=== PATIENT | male | born 1990 | race Caucasian/White ===

== ENCOUNTER 2016-09-04 20:31 | Emergency (ER) | payer MEDICAID, OTHER ==
[~2016-09-04] VITALS: Ht 170.2 cm; Wt 68.0 kg
[2016-09-04 21:02] VITALS: Ht 170.2 cm; Wt 68.0 kg
[2016-09-04] MEDS ORDERED: IBUPROFEN 800 MG TAB PO STA (21:22)
[2016-09-04] MEDS ORDERED: DIPHTH/TET/ACEL PERTUSS (ADULT) 0.5 ML VIAL IM ONE (21:30)
[2016-09-04] MEDS ORDERED: CEPH-443 PO (22:29)
[2016-09-04] MEDS ORDERED: IBUPROFEN 600 MG TAB PO ONE (22:30)
--- NOTE | 2016-09-05 01:18 | ERD ---
ER Documentation Chief Complaint Date/Time DATE: 09/05/16 TIME: 01:13 Chief Complaint right index finger lac x 3 hours (SHRUTHI LOPEZ PA-C) HPI This patient is a 26-year-old male presenting to the emergency department with complaints of right second finger laceration which occurred about 3 hours prior to arrival. The patient was working with a metal air conditioning unit when he cut his finger on it accidentally. The patient is right-hand dominant. Tetanus is not up-to-date. The patient reports moderate pain associated with the laceration. He denies other injuries or other symptoms at this time. (SHRUTHI LOPEZ PA-C) ROS All systems reviewed and are negative except as per history of present illness. (SHRUTHI LOPEZ PA-C) Medications Home Meds Active Scripts Cephalexin* (Keflex*) 500 Mg Capsule, 500 MG PO BID for 5 Days, #15 CAP Prov:SHRUTHI LOPEZ PA-C 09/04/16 Allergies Allergies: Coded Allergies: No Known Allergy (Unverified , 09/04/16) PMhx/Soc Medical and Surgical Hx: pt denies Medical Hx, pt denies Surgical Hx Hx Alcohol Use: No Hx Substance Use: No Hx Tobacco Use: No Smoking Status: Never smoker (SHRUTHI LOPEZ PA-C) Physical Exam Vitals Vital Signs Date Time Temp Pulse Resp B/P Pulse Ox O2 Delivery O2 Flow Rate FiO2 09/04/16 21:02 98.7 73 18 130/94 100 (TALYA VERA MD) Physical Exam Const: Nontoxic, well-appearing male in no acute distress. Head: Atraumatic Eyes: Normal Conjunctiva ENT: Normal External Ears, Nose and Mouth. Neck: Full range of motion..~ No meningismus. Resp: Clear to auscultation bilaterally Cardio: Regular rate and rhythm, no murmurs Abd: Soft, non tender, non distended. Normal bowel sounds Skin: There is an approximate 5 cm laceration to the dorsal lateral aspect of the right second finger. There is mild active bleeding. There appears to be no involvement of ligaments or tendons. Range of motion is intact in the finger. Back: No midline or flank tenderness Ext: No cyanosis, or edema Neur: Awake and alert Psych: Normal Mood and Affect (SHRUTHI LOPEZ PA-C) Results 24 hrs Current Medications Medications (Trade) Dose Ordered Sig/Lovely Route PRN Reason Start Time Stop Time Status Last Admin Dose Admin Diphtheria/ Tetanus/Acell Pertussis (Adacel) 0.5 ml ONCE ONCE IM 09/04/16 21:30 09/04/16 21:31 DC 09/04/16 22:04 Ibuprofen (Motrin) 600 mg ONCE STAT PO 09/04/16 21:22 09/04/16 21:25 DC Ibuprofen (Motrin) 600 mg ONCE ONCE PO 09/04/16 22:30 09/04/16 22:31 DC 09/04/16 22:11 (TALYA VERA MD) Procedures/MDM 26-year-old male presents to the emergency department with complaints of laceration to his right second finger. Complex laceration Repair by me: Anesthesia: 1% lidocaine locally Location: Dorsal lateral aspect of the right second finger Tendon/Joint/Nerves: No injury Foreign body: None detected after copious irrigation and exploration Technique: 3 absorbable 5-0 interrupted deep sutures were placed to first stop bleeding. Then, 8 nonabsorbable 5-0 prolene simple Interrupted Sutures were used to close the skin superficially. Wound edges well approximated. Complexity: Complex laceration repair requiring deep and superficial sutures. Post Closure Length: 5 cm Patient's bleeding was easily controlled in the department and there is no indication of anemia. No evidence of compartment syndrome, neurologic injury, vascular injury, open joint, tendon laceration, or foreign body. Patient is appropriate for outpatient follow up. 48 hour wound check. Scar minimization instructions given. Supervising physician, Dr. Giovana Horta, visualized the patient's laceration bedside prior to discharge. (SHRUTHI LOPEZ PA-C) Departure Diagnosis: Primary Impression: Laceration Condition: Fair Patient Instructions: Laceration, Hand Referrals: COMM[facility]ITY CLINICS YOU HAVE RECEIVED A MEDICAL SCREENING EXAM AND THE RESULTS INDICATE THAT YOU DO NOT HAVE A CONDITION THAT REQUIRES URGENT TREATMENT IN THE EMERGENCY DEPARTMENT. FURTHER EVALUATION AND TREATMENT OF YOUR CONDITION CAN WAIT UNTIL YOU ARE SEEN IN YOUR DOCTORS OFFICE WITHIN THE NEXT 1-2 DAYS. IT IS YOUR RESPONSIBILITY TO MAKE AN APPOINTMENT FOR FOLOW-UP CARE. IF YOU HAVE A PRIMARY DOCTOR --you should call your primary doctor and schedule an appointment IF YOU DO NOT HAVE A PRIMARY DOCTOR YOU CAN CALL OUR PHYSICIAN REFERRAL HOTLINE AT IF YOU CAN NOT AFFORD TO SEE A PHYSICIAN YOU CAN CHOSE FROM THE FOLLOWING [facility] [id number] [facility] [address] [facility] [address] [facility] [address] [facility] [address] [facility]. [address] Additional Instructions: Regrese en 48 horas por otra evaluacion. Regrese en 7 conroy para removar puntadas. No mas mejor en 2-3 conroy, regresar. Mas peor en 24 horas, regresear rapidamente. Ir a doctor primario in 5-7 conroy. Usar instrucciones cuando jerrell medicamento. Comments I was not involved in the care of this patient. Signed for Dr Giovana Horta. Talya Vera MD (TALYA VERA MD) SHRUTHI LOPEZ PA-C Sep 05, 2016 01:18 TALYA VERA MD Sep 05, 2016 14:11
== END 2016-09-05 00:11 | disposition left against medical advice (07) ==
LOC: FTE 20:31 → E/R 09-05 00:11
DX: S61.210A Laceration without foreign body of right index finger without damage to nail, initial encounter (principal); W26.8XXA Contact with other sharp object(s), not elsewhere classified, initial encounter; Y92.89 Other specified places as the place of occurrence of the external cause; Z23 Encounter for immunization
CPT/HCPCS: 12042; 90471; 90715; Z7502; Z7610